=== PATIENT | male | born 1985 | race Caucasian/White ===

== ENCOUNTER 2019-10-02 11:10 | Emergency (ER) | payer OTHER ==
--- NOTE | 2019-10-02 11:18 | ER Document Report ---
ED Medical Screen (RME) - General Chief Complaint: Abdominal Pain Stated Complaint: ABDOMINAL PAIN Time Seen by Provider: 10/02/19 11:14 Mode of Arrival: Ambulatory Information source: Patient Notes: 34-year-old male presented to ED for complaint of pain to the right upper abdomen under the rib cage. He states he first noticed it about a week ago it was mild but now is getting worse. He states it comes and goes in waves denies any urinary symptoms. Denies any nausea vomiting. Denies any fevers. He states right now it is just discomfort at times the pain level is up to a 3/5. He states he has been taking Motrin but has not taken anything today. I have greeted and performed a rapid initial assessment of this patient. A comprehensive ED assessment and evaluation of the patient, analysis of test results and completion of medical decision making process will be conducted by an additional ED providers. Physical Exam - Vital signs Vitals: Temp Pulse Resp BP Pulse Ox 97.8 F 77 20 170/82 H 98 10/02/19 11:13 10/02/19 11:13 10/02/19 11:13 10/02/19 11:13 10/02/19 11:13 Course - Vital Signs Vital signs: Temp Pulse Resp BP Pulse Ox 97.8 F 77 20 170/82 H 98 10/02/19 11:13 10/02/19 11:13 10/02/19 11:13 10/02/19 11:13 10/02/19 11:13
--- NOTE | 2019-10-02 12:00 | ER Document Report ---
ED GI/ - General Chief Complaint: Abdominal Pain Stated Complaint: ABDOMINAL PAIN Time Seen by Provider: 10/02/19 11:14 Mode of Arrival: Ambulatory Notes: HPI: Onset 4 days ago of some right upper quadrant intermittent abdominal discomfort. Some radiation to the back. Nausea without vomiting. No fevers. No radiation to the lower abdomen. No dysuria or diarrhea. No obvious aggravating or relieving factors. ROS: See HPI All other review of systems reviewed and otherwise negative Reviewed vital signs and nursing note as charted by RN. PHYSICAL EXAM: CONSTITUTIONAL: Alert and oriented and responds appropriately to questions. Well-appearing; well-nourished HEAD: Normocephalic; atraumatic EYES: Sclerae non-icteric CARD: Regular rate and rhythm; no murmurs; symmetric distal pulses RESP: Normal chest excursion without splinting or tachypnea; breath sounds clear and equal bilaterally; no wheezes, no rhonchi, no rales ABD/GI: Normal bowel sounds; non-distended; soft, mildly tender to palpation the right upper quadrant without rebound or guarding. No palpable masses BACK: The back appears normal and is non-tender to palpation EXT: Normal ROM in all joints; non-tender to palpation; no edema SKIN: No acute lesions noted NEURO: CN 2-12 intact; 5/5 bilateral upper and lower extremity strength with sensation intact to light touch PSYCH: The patient's mood and manner are appropriate. Grooming and personal hygiene are appropriate. TRAVEL OUTSIDE OF THE [place] IN LAST 30 DAYS: No - Related Data Allergies/Adverse Reactions: No Known Allergies Allergy (Verified 10/02/19 11:15) Past Medical History - General Information source: Patient - Social History Smoking Status: Current Every Day Smoker Chew tobacco use (# tins/day): No Frequency of alcohol use: None Drug Abuse: None Family History: Reviewed & Not Pertinent Patient has suicidal ideation: No Patient has homicidal ideation: No Physical Exam - Vital signs Vitals: Temp Pulse Resp BP Pulse Ox 97.8 F 77 20 170/82 H 98 10/02/19 11:13 10/02/19 11:13 10/02/19 11:13 10/02/19 11:13 10/02/19 11:13 Course - Re-evaluation Re-evalutation: 10/02/19 11:59 Given the above history and physical we will proceed with an ultrasound of right upper quadrant to evaluate for the possibility of gallbladder pathology. No lower quadrant abdominal tenderness. No rebound or guarding. No palpable masses. No cough or shortness of breath to suggest a right lower lobe pneumonia. 10/02/19 12:54 Labs and imaging as recorded. Repeat abdominal exam is very benign. Patient will be discharged home with strict return precautions, placed on a GI and acid medications, and provided with gastroenterology follow-up and strict return precautions. - Vital Signs Vital signs: Temp Pulse Resp BP Pulse Ox 97.8 F 77 20 170/82 H 98 10/02/19 11:13 10/02/19 11:13 10/02/19 11:13 10/02/19 11:13 10/02/19 11:13 - Laboratory Result Diagrams: 10/02/19 11:23 10/02/19 11:23 Laboratory results interpreted by me: 10/02/19 11:23 Urine Blood SMALL H Discharge - Discharge Clinical Impression: Epigastric abdominal pain Condition: Good Disposition: HOME, SELF-CARE Additional Instructions: Come back immediately for any increased pain, change in location or quality of pain, fevers or vomiting, or any other acute problems. Please make sure that you follow-up with the primary care physician and take the antiacid medications as discussed. I have also provided an outpatient gastroenterology for referral. Prescriptions: Esomeprazole Magnesium [Nexium] 20 mg PO DAILY #30 capsule. Referrals: TAMARA GOOD MD [ACTIVE STAFF] - Follow up as needed
--- NOTE | 2019-10-02 12:02 | RADIOLOGY REPORT (SQ) ---
EXAM DESCRIPTION: U/S ABDOMEN LIMITED W/O DOP COMPLETED DATE/TIME: 10/02/2019 11:54 am REASON FOR STUDY: right upper quad abdominal pain COMPARISON: None. TECHNIQUE: Dynamic and static grayscale images acquired of the abdomen and recorded on PACS. Additio nal selected color Doppler and spectral images recorded. LIMITATIONS: None. FINDINGS: PANCREAS: No masses. Visualized pancreatic duct normal caliber. LIVER: No masses. Echotexture normal. LIVER VASCULATURE: Normal directional flow of the main portal vein and hepatic veins. GALLBLADDER: No stones. Normal wall thickness. No pericholecystic fluid. ULTRASOUND-DETECTED CHRISTIANSEN'S SIGN: Negative. INTRAHEPATIC DUCTS AND COMMON DUCT: CBD and intrahepatic ducts normal caliber. No filling defects. INFERIOR VENA CAVA: Normal flow. AORTA: No aneurysm. RIGHT KIDNEY: Normal size. Normal echogenicity. No solid or suspicious masses. No hydronephrosis. No calcifications. PERITONEAL AND RIGHT PLEURAL SPACE: No ascites or effusions. OTHER: No other significant findings. IMPRESSION: NORMAL RIGHT UPPER QUADRANT ULTRASOUND. TECHNICAL DOCUMENTATION: JOB ID: [id number]- All Rights Reserved Reading location - IP/workstation name: [email or web address]
[2019-10-02 12:13] LABS: ABSOLUTE EOSINOPHILS # (AUTO) 0.1 10^3/uL (0.0-0.6); ABSOLUTE LYMPHOCYTES (AUTO) 2.3 10^3/uL (0.5-4.7); ABSOLUTE MONOCYTES (AUTO) 0.5 10^3/uL (0.1-1.4); ABSOLUTE NEUT (AUTO) 3.8 10^3/uL (1.7-8.2); BASOPHILS % (AUTO) 0.4 % (0-2); EOSINOPHILS % (AUTO) 1.6 % (0-6); HEMATOCRIT 47.9 % (37.9-51.0); HEMOGLOBIN 16.2 g/dL (13.5-17.0); LYMPHOCYTES % (AUTO) 33.8 % (13-45); MEAN CORPUSCULAR HEMOGLOBIN 29.8 pg (27.0-33.4); MEAN CORPUSCULAR HGB CONC 33.9 g/dL (32.0-36.0); MEAN CORPUSCULAR VOLUME 88 fl (80-97); MONOCYTES % (AUTO) 7.6 % (3-13); PLATELET COUNT 203 10^3/uL (150-450); RED BLOOD COUNT 5.45 10^6/uL (4.35-5.55); RED CELL DISTRIBUTION WIDTH 12.7 % (11.5-14.0); SEGMENTED NEUTROPHILS % (AUTO) 56.6 % (42-78); TOTAL CELLS COUNTED % (AUTO) 100 %; WHITE BLOOD COUNT 6.7 10^3/uL (4.0-10.5)
[2019-10-02 12:17] LABS: APPEARANCE,URINE CLEAR; BILIRUBIN,URINE NEGATIVE (NEGATIVE); COLOR,URINE YELLOW; GLUCOSE, URINE NEGATIVE (NEGATIVE); KETONES,URINE NEGATIVE (NEGATIVE); PROTEIN,URINE NEGATIVE (NEGATIVE); URINE SPECIFIC GRAVITY 1.017; UROBILINOGEN,URINE NEGATIVE mg/dL (<2.0)
[2019-10-02 12:42] LABS: ALBUMIN 4.7 g/dL (3.5-5.0); ALKALINE PHOSPHATASE 74 U/L (38-126); ANION GAP 9 (5-19); ASPARTATE AMINO TRANSFERASE 26 U/L (17-59); BILIRUBIN,DIRECT 0.3 mg/dL (0.0-0.4); BILIRUBIN,TOTAL 0.9 mg/dL (0.2-1.3); BLOOD UREA NITROGEN 14 mg/dL (7-20); CARBON DIOXIDE 25 mmol/L (22-30); CHLORIDE 106 mmol/L (98-107); GLUCOSE 100 mg/dL (75-110); POTASSIUM 4.2 mmol/L (3.6-5.0); TOTAL PROTEIN 7.9 g/dL (6.3-8.2)
[2019-10-02] MEDS ORDERED: LIDOCAINE 2% VISCOUS SOLN 15 ML UDCUP PO ONE (12:44)
[2019-10-02] MEDS ORDERED: METOCLOPRAMIDE HCL ORAL SOLN 10 MG/10 ML UDCUP PO ONE (12:44)
[2019-10-02] MEDS ORDERED: MAG HYDROX/AL HYDROX/SIMETH SUSP 30 ML UDCUP PO ONE (12:44)
[2019-10-02 13:17] VITALS: BP 150/77
== END 2019-10-02 13:15 | disposition home or self-care (01) ==
LOC: ER 11:10
DX: R10.13 Epigastric pain (principal); R10.811 Right upper quadrant abdominal tenderness; R11.0 Nausea; F17.200 Nicotine dependence, unspecified, uncomplicated
CPT/HCPCS: 99284; 36415; 83690; 85025; 80053; 81001; 76705; J3490

== ENCOUNTER 2020-03-17 06:41 | Emergency (ER) | payer OTHER ==
[2020-03-17] MEDS ORDERED: ASPIRIN 81 MG TABLET, CHEWABLE ONE (07:17)
[2020-03-17] MEDS ORDERED: ASPIRIN 81 MG TABLET, CHEWABLE PO ONE (07:18)
[2020-03-17 07:41] LABS: ABSOLUTE EOSINOPHILS # (AUTO) 0.2 10^3/uL (0.0-0.6); ABSOLUTE LYMPHOCYTES (AUTO) 1.8 10^3/uL (0.5-4.7); ABSOLUTE MONOCYTES (AUTO) 0.7 10^3/uL (0.1-1.4); ABSOLUTE NEUT (AUTO) 3.3 10^3/uL (1.7-8.2); BASOPHILS % (AUTO) 0.4 % (0-2); EOSINOPHILS % (AUTO) 2.6 % (0-6); HEMATOCRIT 44.8 % (37.9-51.0); HEMOGLOBIN 15.5 g/dL (13.5-17.0); LYMPHOCYTES % (AUTO) 29.6 % (13-45); MEAN CORPUSCULAR HEMOGLOBIN 30.1 pg (27.0-33.4); MEAN CORPUSCULAR HGB CONC 34.5 g/dL (32.0-36.0); MEAN CORPUSCULAR VOLUME 87 fl (80-97); MONOCYTES % (AUTO) 11.6 % (3-13); PLATELET COUNT 168 10^3/uL (150-450); RED BLOOD COUNT 5.13 10^6/uL (4.35-5.55); RED CELL DISTRIBUTION WIDTH 12.8 % (11.5-14.0); SEGMENTED NEUTROPHILS % (AUTO) 55.8 % (42-78); TOTAL CELLS COUNTED % (AUTO) 100 %; WHITE BLOOD COUNT 5.9 10^3/uL (4.0-10.5)
[2020-03-17 07:58] LABS: ALBUMIN 4.2 g/dL (3.5-5.0); ALKALINE PHOSPHATASE 75 U/L (38-126); ANION GAP 6 (5-19); ASPARTATE AMINO TRANSFERASE 28 U/L (17-59); BILIRUBIN,TOTAL 0.5 mg/dL (0.2-1.3); BLOOD UREA NITROGEN 13 mg/dL (7-20); CALCIUM 9.1 mg/dL (8.4-10.2); CARBON DIOXIDE 25 mmol/L (22-30); CHLORIDE 108 mmol/L (98-107); CREATINE KINASE 110 U/L (55-170); GLUCOSE 105 mg/dL (75-110); POTASSIUM 3.9 mmol/L (3.6-5.0); TOTAL PROTEIN 6.9 g/dL (6.3-8.2)
--- NOTE | 2020-03-17 07:59 | RADIOLOGY REPORT (SQ) ---
EXAM DESCRIPTION: XR CHEST 1 VIEW COMPLETED DATE/TME: 03/17/2020 07:11 CLINICAL HISTORY: chest pain COMPARISON: None. FINDINGS: Single frontal view of the chest. Cardiomediastinal silhouette: Normal size and contour. Lungs: No consolidation, pneumothorax, or pleural effusion. Bones: No acute osseous abnormality. Leads overlie the chest. Upper abdomen: No abnormality identified. IMPRESSION: 1. No acute pulmonary process identified.
[2020-03-17 08:11] LABS: CREATINE KINASE MB 0.89 ng/mL (<4.55)
[2020-03-17 08:12] LABS: TROPONIN I < 0.012 ng/mL
--- NOTE | 2020-03-17 09:06 | ER Document Report ---
ED General - General Chief Complaint: Chest Pain Stated Complaint: CHEST PAIN/SHORT OF BREATH Time Seen by Provider: 03/17/20 09:00 TRAVEL OUTSIDE OF THE [place] IN LAST 30 DAYS: No - HPI Patient complains to provider of: Chest pain Notes: Current young man no chronic medical history presents with resolved chest pressure this morning. Patient's pain was 6/10 left chest no radiation nothing made better or worse was associated with shortness of breath. Denies nausea vomiting diaphoresis. Denies any history of heart disease. Denies fever chills cough. - Related Data Allergies/Adverse Reactions: No Known Allergies Allergy (Verified 03/17/20 07:20) Home Medications: reflux med Past Medical History - Social History Smoking Status: Current Some Day Smoker Family History: Reviewed & Not Pertinent Patient has homicidal ideation: No Past Surgical History: Reports: Hx Appendectomy, Hx Tonsillectomy Review of Systems - Review of Systems Notes: REVIEW OF SYSTEMS: CONSTITUTIONAL: -fevers, -chills EENT: -eye pain, -difficulty swallowing, -nasal congestion CARDIOVASCULAR: + chest pain, -syncope. RESPIRATORY: -cough, + SOB GASTROINTESTINAL: -abdominal pain, -nausea, -vomiting, -diarrhea GENITOURINARY: -dysuria, -hematuria MUSCULOSKELETAL: -back pain, -neck pain SKIN: -rash or skin lesions. HEMATOLOGIC: -easy bruising or bleeding. LYMPHATIC: -swollen, enlarged glands. NEUROLOGICAL: -altered mental status or loss of consciousness, -headache, - neurologic symptoms PSYCHIATRIC: -anxiety, -depression. ALL OTHER SYSTEMS REVIEWED AND NEGATIVE. Physical Exam - Vital signs Vitals: Temp Pulse Resp BP Pulse Ox 98.8 F 61 16 156/88 H 99 03/17/20 06:52 03/17/20 06:52 03/17/20 06:52 03/17/20 06:52 03/17/20 06:52 - Notes Notes: PHYSICAL EXAMINATION: GENERAL: Well-appearing, well-nourished and in no acute distress. HEAD: Atraumatic, normocephalic. EYES: Pupils equal round and reactive to light, extraocular movements intact, sclera anicteric, conjunctiva are normal. ENT: nares patent, oropharynx clear without exudates. Moist mucous membranes. NECK: Normal range of motion, supple without lymphadenopathy LUNGS: Breath sounds clear to auscultation bilaterally and equal. No wheezes rales or rhonchi. HEART: Regular rate and rhythm without murmurs ABDOMEN: Soft, nontender, normoactive bowel sounds. No guarding, no rebound. No masses appreciated. EXTREMITIES: Normal range of motion, no pitting or edema. No cyanosis. NEUROLOGICAL: Cranial nerves grossly intact. Normal speech, normal gait. Normal sensory and motor exams. PSYCH: Normal mood, normal affect. SKIN: Warm, Dry, normal turgor, no rashes or lesions noted. Course - Re-evaluation Re-evalutation: 03/17/20 09:06 Appearing man in no acute distress presents with resolved chest pain. Patient states he suffers from anxiety. Lab and x-ray was not having a heart attack. 03/17/20 11:21 Patient's EKG is nonischemic, troponin undetectable, repeat troponin every 3 hours also undetectable. Patient be discharged home improved follow-up PCP return if anything changes. Remainder labs unremarkable - Vital Signs Vital signs: Temp Pulse Resp BP Pulse Ox 98.5 F 61 19 130/78 H 96 03/17/20 10:01 03/17/20 06:52 03/17/20 10:01 03/17/20 10:01 03/17/20 10:01 - Laboratory Result Diagrams: 03/17/20 07:22 03/17/20 07:22 Laboratory results interpreted by me: 03/17/20 07:22 Chloride 108 H - EKG Interpretation by Ks EKG shows normal: Sinus rhythm Rate: Normal Rhythm: NSR Additional EKG results interpreted by me: 03/17/20 09:06 Normal sinus rhythm, no ST elevations or depressions, no pathologic T wave inversions Discharge - Discharge Clinical Impression: Chest pain Qualifiers: Chest pain type: unspecified Qualified Code(s): R07.9 - Chest pain, unspecified Condition: Stable Disposition: HOME, SELF-CARE Instructions: Chest Pain of Unclear Cause ([facility]) Additional Instructions: See your PCP
[2020-03-17 11:48] VITALS: BP 131/82
--- NOTE | 2020-03-17 12:10 | EKG REPORT ---
SEVERITY:- OTHERWISE NORMAL ECG - SINUS RHYTHM : Confirmed by: Piyush Ragland MD 17-Mar-2020 12:10:21
== END 2020-03-17 11:46 | disposition home or self-care (01) ==
LOC: ER 06:41
DX: R07.89 Other chest pain (principal); R06.02 Shortness of breath; F17.200 Nicotine dependence, unspecified, uncomplicated; Z79.899 Other long term (current) drug therapy
CPT/HCPCS: 36415; 71045; 80053; 82550; 82553; 84484; 85025; 93005; 93010; 99285